=== PATIENT | female | born 1960 | race Caucasian/White ===

== ENCOUNTER → 2019-06-04 09:51 | Day surgery (SDC) | payer BC ==
[~2019-06-04 09:51] MED LIST: Acetaminophen TAB* 325 MG PO PRN; Buffered Lidocaine 1% SYRIN* 1 ML/SYRINGE INTRADERM ONE; Lactated Ringers 1000 ML Bag* 1,000 ML IV SCH; Lidocaine 2% PF * 5 ML VIAL ONE; Midazolam* 1 MG/ML 5 ML VIAL (5 MG) ONE; Naloxone* 0.4 MG/ML 1 ML VIAL IV PRN; Ondansetron INJ* 2 MG/ML VIAL ONE; Propofol* 10 MG/ML 20 ML BTL ONE
[2019-06-04 14:49] VITALS: BP 115/88
--- NOTE | 2019-06-05 23:28 | PRO ---
DATE: 06/04/19 [facility] REFERRING PHYSICIAN: Agata Pace MD * PROCEDURE: Colonoscopy and ileoscopy with cold snare removal of distal sigmoid 4-mm polyp and biopsy removal of 2 more proximal polyps. 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 She had had a difficult experience with the prior sedative procedure. She has no symptoms referable to gut currently. Informed consent was obtained with an opportunity for questions, special concerns and a travel discussion with a close friend in attendance. All questions were answered. ENDOSCOPIST: Dr. Paez. MEDICATIONS: Monitored anesthesia per Dr. Mckeon. FINDINGS: She is a slender and healthy-appearing middle-aged woman in no distress. Her abdomen was soft and nontender. She was positioned left side down and sedation administered. Initial views show an excellent prep and normal mucosa. The adult scope encountered a 4-mm polyp in the distal sigmoid, removed with cold snare and suction retrieved. Further advancement was assisted by transverse colon lift. Advancement was straight forward and readily obtained. There was fair amount of tortuosity around the hepatic flexure. Cecum was reached. The cecum, ileocecal valve and 15 cm of terminal ileum and the right colon directly was normal. On slow withdrawal, additional 2 to 3 mm polypoid nodules were seen in the hepatic flexure area and distal transverse. They were removed with biopsy. Final views in the rectum including retroflexion was normal. No additional polyps are seen. No diverticuli were seen. IMPRESSION: Colon polyps - 3 and followup now 5 years. Addendum: all 3 TAs f/u 5 yrs [id number]/[facility] #: [id number] [facility]
== END | disposition home or self-care (01) ==
LOC: OR 09:51
PROVIDERS: ATTEND Internal Medicine Gastroenterology
DX: Z12.11 Encounter for screening for malignant neoplasm of colon (principal); D12.3 Benign neoplasm of transverse colon; D12.5 Benign neoplasm of sigmoid colon; F41.9 Anxiety disorder, unspecified; D50.9 Iron deficiency anemia, unspecified; Z87.891 Personal history of nicotine dependence
CPT/HCPCS: 88305; J2250; J2405; J2704